=== PATIENT | male | born 1955 | race Caucasian/White ===

== ENCOUNTER 2020-06-27 17:08 | Inpatient (IN) ==
[2020-06-27] MEDS ORDERED: IOPAMIDOL 100 ML BOTTLE IV ONE (17:09)
[2020-06-27] MEDS ORDERED: ONDANSETRON 4 MG/2 ML VIAL IV ONE ×3 (17:33→20:56)
[2020-06-27] MEDS ORDERED: 0.9 % SODIUM CHLORIDE 2,000 ML IV ONE (17:33)
[2020-06-27] MEDS ORDERED: PANTOPRAZOLE 40 MG VIAL IV ONE (17:33)
--- NOTE | 2020-06-27 17:38 | Emergency Department Note ---
Abdominal Pain HPI General Chief Complaint: Abdominal Pain Stated Complaint: Generalized Abdominal Pain Time Seen by Provider: 06/27/20 17:33 Source: patient Mode of arrival: ambulatory Limitations: no limitations History of Present Illness HPI Narrative: Narrative: 65-year-old male comes in complaining of periumbilical belly pain rated 6-7 out of 10. He has not taken anything for it. He has some mild nausea no vomiting yet. He has some mild diarrhea earlier today. He was just sitting on the couch watching TV when the pain came on. Prior to that he had drank a beer and had some food though. He drinks about 1 beer every 2 or 3 days. No fever chills shortness of breath trouble urinating or any other recent illness. In further history he notes that he does have chronic back pain issues. Additionally he had a CT scan of the abdomen pelvis done last week for right lower quadrant pain that was negative for appendicitis-this was done over at [facility] for his PCP Related Data Home Medications Medication Instructions Recorded Confirmed amlodipine 5 mg PO 06/27/20 aspirin 81 mg PO QDAY 06/27/20 06/27/20 atorvastatin 10 mg PO 06/27/20 losartan 100 mg PO 06/27/20 omeprazole 20 mg PO 06/27/20 Allergies Allergy/AdvReac Type Severity Reaction Status Date / Time No Known Drug Allergies Allergy Verified 06/27/20 17:09 Review of Systems ROS ROS Narrative: Narrative: All systems ED: reviewed and negative except as stated. [facility] Narrative Patient History Narrative: Narrative: Medical/Surgical/Family History All Active Problems (Updated 06/27/20 @ 22:47 by Maurilio Diaz MD) Abdominal pain (Acute) Acute appendicitis (Acute) GERD (gastroesophageal reflux disease) (Acute) High cholesterol (Acute) Hypertension (Acute) Social History Smoking Status: Former smoker Alcohol Intake Frequency: 0-2 drinks per day Exam Narrative Narrative: Narrative: No acute distress resting. Normocephalic atraumatic. Conjunctive are clear sclerae white nonicteric. No nasal discharge or congestion. Oropharynx pink and moist. Neck is supple without lymphadenopathy thyromegaly. Heart is regular rate and rhythm no murmur appreciated. Lungs clear to auscultation bilaterally without wheezes rales rhonchi or respiratory distress. Abdomen is soft nontender nondistended except for the periumbilical area which is mildly tender. No peritoneal signs or guarding. No pedal edema. Alert oriented able answer questions appropriately. Face is symmetrical. No dysarthria ataxia or tremor General Limitations: no limitations Course Vital Signs Vital signs: Vital Signs Temperature 97.0 F 06/27/20 17:09 Pulse Rate 81 06/27/20 17:09 Respiratory Rate 26 H 06/27/20 17:09 Blood Pressure 232/75 06/27/20 17:09 Pulse Oximetry (%) 97 06/27/20 17:09 Temperature 97.0 F 06/27/20 17:09 Pulse Rate 60 06/27/20 22:31 Respiratory Rate 13 06/27/20 22:31 Blood Pressure 155/99 06/27/20 22:31 Pulse Oximetry (%) 96 06/27/20 22:31 MDM MDM Narrative Medical decision making narrative: Narrative: Concern for pancreatitis versus appendicitis versus other bowel issues of both infectious and noninfectious origin. Gastritis could also cause this picture. He denies any vomiting or abnormal stools. We will work-up with CT scan plus laboratory. Start IV fluids and pain medicines. Pantoprazole His blood pressure is markedly elevated as well so we will give him some labetalol-however after ordering this nursing staff informed me that that blood pressure was erroneous. Blood pressure was actually 110/68. So this order is retracted He developed some diaphoresis and bradycardia so EKG was ordered which showed sinus bradycardia with few PVCs. This was after getting some Dilaudid for pain. CT scan showed a left kidney stone which is unlikely because of the many issues. Also markedly dilated appendix at 1.3 cm. Some thickening of the hope also noted. Discussed the case with Dr. Bolton, general surgeon. He advised me that he would come evaluate the patient We had to give him his more pain medicine as his pain level started rising. Unfortunately he did not tolerate this well and his oxygen levels started to drop. So we had to place him on oxygen. Currently he is very sensitive to the respiratory effects of narcotics. Lab Data Lab results reviewed: Yes I reviewed the patient's lab results. Result diagrams: 06/27/20 17:50 06/27/20 17:50 Labs: Lab Results 06/27/20 06/27/20 06/27/20 Range/Units 17:50 17:50 17:50 WBC 11.8 H (4.5-11.0) K/mcL RBC 5.06 (4.50-5.90) M/mcL Hgb 15.0 (13.5-16.5) g/dL Hct 44.4 (41.0-55.0) % MCV 87.7 (80.0-100.0) fL MCH 29.6 (26.0-34.0) pg MCHC 33.8 (31.0-36.0) g/dL RDW 12.8 (11.5-14.5) % Plt Count 191 (140-440) K/mcL MPV 9.5 (7.4-10.4) fL Neut % (Auto) 80.0 H (38.0-78.0) % Lymph % (Auto) 11.7 L (15.0-49.0) % Kings % (Auto) 6.8 (1.0-12.0) % Eos % (Auto) 1.1 (0.0-7.0) % Baso % (Auto) 0.4 (0.0-2.0) % Lymph # (Auto) 1.38 L (1.50-4.80) K/mcL Kings # (Auto) 0.80 (0.10-0.90) K/mcL Eos # (Auto) 0.13 (0.00-0.70) K/mcL Baso # (Auto) 0.05 (0.00-0.20) K/mcL Absolute Neutrophils 9.45 H (1.80-8.00) K/mcL VBG Lactic Acid 1.3 (0.5-2.0) mmol/L Sodium 137 (133-145) mmol/L Potassium 3.5 (3.3-5.1) mmol/L Chloride 103 (96-108) mmol/L Carbon Dioxide 23 (22-30) mmol/L Anion Gap 11.0 (8.0-16.0) BUN 14 (8-23) mg/dL Creatinine 1.0 (0.7-1.2) mg/dL GFR Calculation 77 Glucose 115 H (70-105) mg/dL Calcium 9.4 (8.6-10.4) mg/dL Total Bilirubin 0.4 (0.1-1.0) mg/dL AST 19 (<40) U/L ALT 18 (<40) U/L Alkaline Phosphatase 98 (39-117) U/L C-Reactive Protein 0.20 (0.03-0.80) mg/dL Total Protein 6.5 (5.9-8.4) gm/dL Albumin 4.1 (3.2-5.2) gm/dL Globulin 2.4 (2.2-3.7) gm/dL Albumin/Globulin Ratio 1.7 (1.0-2.3) Lipase 26 (7-60) U/L Radiology Data Radiology results reviewed: Yes I reviewed the patient's radiology results. EKG Data EKG #1: EKG attestation: Yes I reviewed and interpreted this EKG. EKG results narrative: EKG showed sinus bradycardia with few PVCs Discharge Plan Patient/Caregiver Discharge Instructions Pt seen by FORK REPAIRER/PA only: No Clinical Impression: Acute appendicitis Qualifiers: Acute appendicitis type: with generalized peritonitis Appendicitis gangrene presence: unspecified whether gangrene present Appendicitis perforation presence: unspecified whether perforation present Appendicitis abscess presence: unspecified whether abscess present Qualified Code(s): K35.20 - Acute appendicitis with generalized peritonitis, without abscess Patient Disposition: Xfer As Inpt ([facility]) Condition: Serious Follow up with: Hellen Cardona MD [Primary Care Provider] - Prescriptions: No Action amlodipine 5 mg Tablet 5 mg PO DAILY RF: 0 omeprazole 20 mg Capsule,Delayed Release(Dr/Ec) 20 mg PO DAILY RF: 0 losartan 100 mg Tablet 100 mg PO DAILY RF: 0 atorvastatin 10 mg Tablet 10 mg PO DAILY RF: 0 aspirin 81 mg Tablet,Chewable 81 mg PO QDAY RF: 0
[2020-06-27] MEDS ORDERED: LABETALOL 5 MG/ML ML IV ONE (17:44)
[2020-06-27] MEDS: HYDROmorphone 0.5 MG/0.5 ML SYRINGE IV PRN ×4 (18:05→23:21)
[2020-06-27 18:24] LABS: Basophils # (Auto) 0.05 K/mcL (0.00-0.20); Basophils % (Auto) 0.4 % (0.0-2.0); Eosinophils # (Auto) 0.13 K/mcL (0.00-0.70); Eosinophils % (Auto) 1.1 % (0.0-7.0); Hematocrit 44.4 % (41.0-55.0); Lymphocytes # (Auto) 1.38 K/mcL (1.50-4.80); Lymphocytes % (Auto) 11.7 % (15.0-49.0); Mean Cell Volume 87.7 fL (80.0-100.0); Mean Corpuscular HGB Conc 33.8 g/dL (31.0-36.0); Mean Platelet Volume 9.5 fL (7.4-10.4); Monocytes % (Auto) 6.8 % (1.0-12.0); Platelet Count 191 K/mcL (140-440); RBC 5.06 M/mcL (4.50-5.90); Red Cell Distribution Width 12.8 % (11.5-14.5); WBC 11.8 K/mcL (4.5-11.0)
[2020-06-27 18:46] LABS: ALT/SGPT 18 U/L (<40); AST/SGOT 19 U/L (<40); Albumin 4.1 gm/dL (3.2-5.2); Albumin/Globulin Ratio 1.7 (1.0-2.3); Alkaline Phosphatase 98 U/L (39-117); Bilirubin,Total 0.4 mg/dL (0.1-1.0); Blood Urea Nitrogen 14 mg/dL (8-23); Calcium 9.4 mg/dL (8.6-10.4); Carbon Dioxide 23 mmol/L (22-30); Chloride 103 mmol/L (96-108); Globulin 2.4 gm/dL (2.2-3.7); Glomerular Filtration Rate 77; Glucose 115 mg/dL (70-105)
[2020-06-27] MEDS ORDERED: metroNIDAZOLE 500 MG/100 ML BAG IV ONE (19:52)
[2020-06-27] MEDS ORDERED: cefTRIAXone 2 GM VIAL IM SCH (20:00)
[2020-06-27] MEDS ORDERED: morphine 2 MG/ML VIAL IV PRN (20:56)
[2020-06-27] MEDS ORDERED: PROMETHAZINE 25 MG/ML VIAL IM PRN (20:56)
[2020-06-27] MEDS ORDERED: 0.9 % SODIUM CHLORIDE 1,000 ML IV SCH (21:00)
--- NOTE | 2020-06-27 22:47 | General Surg History&Physical ---
HPI History of Present Illness Patient information: Note initiated : 06/27/20 at 10:29 pm Service Date, if different from initiated Date: [] Patient: David Archer 65 y/o M admitted on for Generalized Abdominal Pain. Chief Complaint: [] History of present illness: Mr. Archer is a 65 year old M 65 yo man with normal colonoscopy 3 yrs ago presents to ed with several hrs of moderately severe crampy, twisting, stabbing periumbilical pain. Pain started some months ago with variable pain in RLQ that was a light ache to a sharp pain. This was intermittent but seemed to get worse 1 week ago. He underwent CT scan at OSH where was noted to have dilated appendix but without other features of appendicitis. He was sent home without further followup. This afternoon with periumbilical pain after being pain free in am. Pain is improved by pushing on abdomen anteriorly, worsened with side compression. Not exacerbated by movement, standing, or jostling. Associated diarrhea - non bloody. Generally feels well No family hx of Colorectal cancer PMH: HTN Hypercholest OA GERD PSH Tonsilectomy No abdominal surgery Constitutional Constitutional: Absent daytime sleepiness, excessive sweating and weakness EENT Eyes: Absent tunnel vision Breasts Breasts: Absent nipple discharge Cardiovascular Cardiovascular: Absent edema Respiratory Respiratory: Absent cough, dyspnea on exertion and stridor Gastrointestinal Gastrointestinal: Present abdominal pain; Absent melena Genitourinary Genitourinary: flank pain Musculoskeletal Musculoskeletal: Absent abnormal gait Integumentary Integumentary: Absent rash Neurological Neurological: Absent memory loss Psychiatric Psychiatric: Absent memory loss Endocrine Endocrine: Absent palpitations Hematologic/Lymphatic Hematologic/Lymphatic: Absent easy bleeding PFSH PFSH All Active Problems (Updated 06/27/20 @ 22:47 by Maurilio Diaz MD) Abdominal pain (Acute) Acute appendicitis (Acute) GERD (gastroesophageal reflux disease) (Acute) High cholesterol (Acute) Hypertension (Acute) Social History smoking status: Former smoker alcohol intake frequency: 0-2 drinks per day MEDS/ALLERGIES Home Medications and Allergies Home Medications Medication Instructions Recorded Confirmed Type amlodipine 5 mg PO DAILY 06/27/20 06/27/20 History aspirin 81 mg PO QDAY 06/27/20 06/27/20 History atorvastatin 10 mg PO DAILY 06/27/20 06/27/20 History losartan 100 mg PO DAILY 06/27/20 06/27/20 History omeprazole 20 mg PO DAILY 06/27/20 06/27/20 History Allergies Allergy/AdvReac Type Severity Reaction Status Date / Time No Known Drug Allergies Allergy Verified 06/27/20 17:09 Physical Examination Vital Signs Vital signs: Temp Pulse Resp BP Pulse Ox 36.1 C 78 13 133/75 98 06/27/20 17:09 06/27/20 22:02 06/27/20 22:02 06/27/20 22:02 06/27/20 22:02 General physical appearance General physical exam: well developed and well nourished Eyes Eye exam: PERRL and normal ocular movement ENT ENT exam: normal nares Head Head exam IM: Present atraumatic, normal inspection and normocephalic Neck Neck exam: no masses and trachea midline Cardiovascular Cardiovascular: RRR no MGR Respiratory Respiratory exam: normal respiratory effort and clear to auscultation Abdomen Abdomen: Present soft (No surgical incisions, BS hypoactive, Dull to percussion, nontender to percussion, nontender including in RLQ to deep palpation, tiney umbilical hernia nontender. no groing hernias. No HSM) Integumentary Integumentary: Present no rash Neurologic Neurologic: Present normal coordination and normal sensation Musculoskeletal Musculoskeletal: Present normal gait Psychiatric Psychiatric: Present oriented to time, oriented to person, oriented to place, speech is normal and memory intact Results Labs Result diagrams: 06/27/20 17:50 06/27/20 17:50 Labs: Abnormal lab results 06/27/20 06/27/20 Range/Units 17:50 17:50 WBC 11.8 H (4.5-11.0) K/mcL Neut % (Auto) 80.0 H (38.0-78.0) % Lymph % (Auto) 11.7 L (15.0-49.0) % Lymph # (Auto) 1.38 L (1.50-4.80) K/mcL Absolute Neutrophils 9.45 H (1.80-8.00) K/mcL Glucose 115 H (70-105) mg/dL Diabetes panel 06/27/20 Range/Units 17:50 Sodium 137 (133-145) mmol/L Potassium 3.5 (3.3-5.1) mmol/L Chloride 103 (96-108) mmol/L Carbon Dioxide 23 (22-30) mmol/L BUN 14 (8-23) mg/dL Creatinine 1.0 (0.7-1.2) mg/dL Glucose 115 H (70-105) mg/dL Calcium 9.4 (8.6-10.4) mg/dL AST 19 (<40) U/L ALT 18 (<40) U/L Alkaline Phosphatase 98 (39-117) U/L Total Protein 6.5 (5.9-8.4) gm/dL Albumin 4.1 (3.2-5.2) gm/dL Calcium panel 06/27/20 Range/Units 17:50 Calcium 9.4 (8.6-10.4) mg/dL Albumin 4.1 (3.2-5.2) gm/dL Pituitary panel 06/27/20 Range/Units 17:50 Sodium 137 (133-145) mmol/L Potassium 3.5 (3.3-5.1) mmol/L Chloride 103 (96-108) mmol/L Carbon Dioxide 23 (22-30) mmol/L BUN 14 (8-23) mg/dL Creatinine 1.0 (0.7-1.2) mg/dL Glucose 115 H (70-105) mg/dL Calcium 9.4 (8.6-10.4) mg/dL Adrenal panel 06/27/20 Range/Units 17:50 Sodium 137 (133-145) mmol/L Potassium 3.5 (3.3-5.1) mmol/L Chloride 103 (96-108) mmol/L Carbon Dioxide 23 (22-30) mmol/L BUN 14 (8-23) mg/dL Creatinine 1.0 (0.7-1.2) mg/dL Glucose 115 H (70-105) mg/dL Calcium 9.4 (8.6-10.4) mg/dL Total Bilirubin 0.4 (0.1-1.0) mg/dL AST 19 (<40) U/L ALT 18 (<40) U/L Alkaline Phosphatase 98 (39-117) U/L Total Protein 6.5 (5.9-8.4) gm/dL Albumin 4.1 (3.2-5.2) gm/dL All other labs normal. A/P Assessment and plan (1) Abdominal pain: Status: Acute Comment: 65 yo man with an oddly prolonged months long history of abdominal pain mostly in RLQ with a slowly progressive course. Today more moderately severe than normal but also periumbilical. With only a very minimally elevated WBC and a normal CRP and long course he does not fit the paturn of acute appendicitis. Never the less his appendix is quite dilated to 13mm - no adjacent fat stranding. 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 The dilation of the appendix is in the mid portion - somewhat suggestive of a mucaceal. Periumbilical pain may be referred from the appendix or manifestation of early abdominal process Plan: NO ANTIBIOTICS - will follow exam clinically to see if declares Am CBC, CRP As to MAN - Sending tumor markers CEA, CA 19-9, CA 125 - will eventually need appendectomy vs R hemicolectomy depending on features - plan for full diagnostic laparoscopy to eval for related MAN for carcinomatosis Maurilio Diaz MD Surgery Time Spent With Patient Time: Total time spent is greater than 50% in coordination of care (as documented) at patient's floor/unit and/or counseling patient:
[2020-06-28] MEDS ORDERED: ONDANSETRON 4 MG/2 ML VIAL IV PRN (00:16)
[2020-06-28] MEDS ORDERED: ACETAMINOPHEN 160 MG/5 ML ORAL.SOL PO SCH (00:16)
[2020-06-28] MEDS ORDERED: METHOCARBAMOL 750 MG TABLET PO SCH (00:16)
[2020-06-28] MEDS ORDERED: PROMETHAZINE 50 MG/ML AMPUL IM PRN (00:16)
[2020-06-28] MEDS: LACTATED RINGERS 1,000 ML IV SCH ×2 (00:29→18:19)
[2020-06-28] MEDS ORDERED: ACETAMINOPHEN 325 MG TABLET PO ONE ×2 (00:47→05:22)
[2020-06-28] MEDS ORDERED: GABAPENTIN 300 MG CAPSULE ONE (00:48)
[2020-06-28] MEDS: ACETAMINOPHEN 325 MG TABLET PO SCH ×4 (00:52→23:14)
[2020-06-28] MEDS: GABAPENTIN 300 MG CAPSULE PO SCH ×2 (00:52→23:15)
[2020-06-28] MEDS ORDERED: morphine 4 MG/ML VIAL ONE ×2 (01:32→05:25)
--- NOTE | 2020-06-28 04:19 | Cat Scan Report ---
CLINICAL INFORMATION: Abdominal pain COMPARISON: None. TECHNIQUE: Following enteric contrast, 80 cc of Isovue-370 were injected intravenously, and 60 seconds later, 0.625 mm helical slices were obtained from the mid heart through the subtrochanteric regions. Following reconstruction, 2.5 mm sagittal, coronal and axial reformatted images were processed and reviewed at bone, lung and soft tissue windows. Five minutes later, 0.625 mm helical slices were obtained from the mid heart through the kidneys and viewed at soft tissue windows.The exam was performed using radiation dose optimization techniques including, but not limited to, automated exposure control, adjustment of the mA and/or kV according to patient size and use of iterative reconstruction technique. FINDINGS: Lung bases show minimal minimal patchy groundglass airspace in the posterior lower lobes - likely a combination of scarring and atelectasis. No definite infiltrates or effusions. The heart is mildly enlarged. There is moderate calcific plaque in the visualized coronary arteries Abdominal images show a phrygian cap in the gallbladder - the gallbladder is otherwise normal. The liver, both adrenal glands, spleen, pancreas and aorta including aortic branches are normal in size, configuration and attenuation without focal lesion. A 2 mm nonobstructing stone is seen within a mid calyx of the left kidney 11 mm simple cyst seen in the superior pole the left kidney. No other renal abnormalities. There is no free air, free fluid or adenopathy Pelvic images show prostate, seminal vesicles and urinary bladder are normal. Scattered sigmoid diverticuli appreciated: the remaining colon is normal. The appendix is moderately dilated, 14 mm, and there is mild wall thickening of the proximal appendix near the cecal junction. No inflammation of the periappendiceal fat. A small amount of contrast seen in the appendiceal lumen, but no definite appendicolith. The small bowel and stomach are grossly normal. Bone windows show severe degeneration in the right and moderate degeneration of the left hip. There is moderate degenerative change throughout the lower lumbar spine. IMPRESSION: 1. Probable early appendicitis. Appendix is dilated with mild wall thickening proximally. No inflammation in the periappendiceal fat, however. Please correlate with other clinical symptoms for appendicitis. The appendix is located in the inferior pericecal region 2. Pancreas is unremarkable. 3. 2 mm nonobstructing stone mid calyx left kidney. 11 mm simple cyst superior pole left kidney 4. Severe right and moderate left hip degeneration. Moderate lumbar degeneration. 5. Moderately heavy calcific plaque in the visualized coronary arteries including the left main LAD proximal circumflex. Interpreted and Authenticated by: Kg Marie 06/28/20
[2020-06-28] MEDS ORDERED: METHOCARBAMOL 750 MG TABLET PO ONE (04:38)
[2020-06-28] MEDS: HEPARIN 5,000 UNIT/ML VIAL SQ SCH ×3 (05:25→23:18)
[2020-06-28] MEDS ORDERED: HEPARIN 5,000 UNIT/ML VIAL ONE (05:26)
[2020-06-28 07:21] LABS: Hemoglobin 14.1 g/dL (13.5-16.5); Mean Cell Volume 90.1 fL (80.0-100.0); Mean Corpuscular HGB Conc 32.8 g/dL (31.0-36.0); Mean Platelet Volume 9.8 fL (7.4-10.4); Platelet Count 192 K/mcL (140-440); RBC 4.77 M/mcL (4.50-5.90); Red Cell Distribution Width 12.8 % (11.5-14.5); WBC 16.3 K/mcL (4.5-11.0)
[2020-06-28 07:33] LABS: Blood Urea Nitrogen 13 mg/dL (8-23); Carbon Dioxide 25 mmol/L (22-30); Chloride 101 mmol/L (96-108); Glomerular Filtration Rate 88; Glucose 145 mg/dL (70-105)
[2020-06-28 08:19] LABS: CRP,High Sensitivity 8.2 mg/L (1.0-3.0)
[2020-06-28 08:50] LABS: Band Neutrophils % 3 % (0-10); Lymphocytes % 4 % (15-49); Monocytes % (Manual) 7 % (1-12); Platelet Estimate NORMAL (Normal); RBC Morphology NORMAL (Normal); Reactive Lymphocytes 2 % (0-2); Segmented Neutrophils % 84 % (38-78)
[2020-06-28] MEDS: amLODIPine 5 MG TABLET PO SCH (10:31)
[2020-06-28] MEDS: ASPIRIN 81 MG TAB.CHEW PO SCH (10:31)
[2020-06-28] MEDS: OMEPRAZOLE 20 MG CAPSULE PO SCH (10:31)
[2020-06-28] MEDS: ATORVASTATIN 10 MG TABLET PO SCH (10:31)
[2020-06-28] MEDS: LOSARTAN 50 MG TABLET PO SCH (10:31)
[2020-06-28] MEDS: POLYETHYLENE GLYCOL 3350 17 GM PACKET PO SCH (10:33)
[2020-06-28] MEDS: morphine 4 MG/ML VIAL IV PRN (10:40)
[2020-06-28] MEDS: cefTRIAXone 2 GM in DEXTROSE 5% IN WATER 50 ML IV SCH (12:33)
--- NOTE | 2020-06-28 12:48 | General Surgery Progress Note ---
SUBJECTIVE Subjective Patient information: Note initiated : 06/28/20 at 12:42 pm Service Date, if different from initiated Date: [] Patient: David Archer 65 y/o M admitted on 06/28/20 for Generalized Abdominal Pain. Chief Complaint: abdominal pain S: feeling worse today overnight off antibiotics pain localized to RLQ. Ready for surgery. O: vss NAD, some new diaphoresis LCTAB RRR no mgr Abd now tender in RLQ, no rebound, reflexive guarding. 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 Plan: Ceftriaxone/Metronidazole OR today for Lap appy with partial cecectomy to remove appendiceal orifice Will explore abdomen for any peritoneal implants If obvious mucinous disease of cecum will need R hemicolectomy Risks including bleeding infeciton injury to structions leakage of mucinin products with creation of periteneal diease all discussed All questions answered Pt ready to proceed Maurilio Diaz MD Surgery Constitutional Vitals: Vital Signs Temp Pulse Resp BP Pulse Ox 37.7 C H 78 18 134/83 93 06/28/20 07:56 06/28/20 07:56 06/28/20 07:56 06/28/20 07:56 06/28/20 07:56 Period Temp Pulse Resp BP Sys/Cohen Pulse Ox Last 24 Hr 36.1 C-37.7 C 44-92 12- 110-232/68-104 93-99 Intake and Output 06/27/20 06/28/20 06/28/20 21:59 05:59 13:59 Intake Total 100 15 Output Total 450 325 Balance -350 -310 Weight 117.027 kg 116.261 kg Intake & Output: Intake & Output 06/27/20 06/28/20 06/28/20 21:59 05:59 13:59 Intake Total 100 15 Output Total 450 325 Balance -350 -310 Weight 117.027 kg 116.261 kg Intake: IV 100 Sodium Chloride 0.9% 1,000 ml @ 100 100 mls/hr IV .Q10H [facility] Rx#: [id number] Oral 15 Output: Void Amount 450 325 Other: Urine Appearance Clear Clear Urine Color Straw Bright Yellow Urine Odor Normal A/P Time Spent With Patient Time: Total time spent is greater than 50% in coordination of care (as documented) at patient's floor/unit and/or counseling patient:
[2020-06-28] MEDS: metroNIDAZOLE 500 MG/100 ML BAG IV SCH ×2 (13:00→23:16)
[2020-06-28] MEDS ORDERED: ONDANSETRON 4 MG/2 ML VIAL ONE (13:20)
[2020-06-28] MEDS ORDERED: SUGAMMADEX SODIUM 200 MG/2 ML VIAL IV ONE (13:20)
[2020-06-28] MEDS ORDERED: ROCURONIUM 10 MG/ML ML IV ONE (13:20)
[2020-06-28] MEDS ORDERED: fentaNYL 250 MCG/5 ML VIAL IV ONE (13:20)
[2020-06-28] MEDS ORDERED: SUCCINYLCHOLINE 20 MG/ML ML IV ONE (13:20)
[2020-06-28] MEDS ORDERED: DEXAMETHASONE 10 MG/ML VIAL ONE (13:20)
[2020-06-28] MEDS ORDERED: MIDAZOLAM 5 MG/5 ML VIAL ONE (13:20)
[2020-06-28] MEDS ORDERED: GLYCOPYRROLATE 0.2 MG/ML VIAL IV ONE (13:20)
[2020-06-28] MEDS ORDERED: PHENYLEPHRINE 10 MG/ML VIAL ONE (13:20)
[2020-06-28] MEDS ORDERED: LIDOCAINE HCL/PF 100 MG/5 ML SYRINGE IV ONE (13:20)
[2020-06-28] MEDS ORDERED: KETAMINE 100 MG/ML ML ONE (13:20)
[2020-06-28] MEDS ORDERED: HYDROmorphone* 2 MG/ML VIAL ONE (13:20)
[2020-06-28] MEDS ORDERED: PROPOFOL 200 MG/20 ML VIAL IV ONE (13:20)
[2020-06-28] MEDS ORDERED: METOPROLOL TARTRATE 5 MG/5 ML VIAL IV ONE (13:20)
[2020-06-28] MEDS ORDERED: BUPIVACAINE W/EPI 0.25% 50 ML VIAL IJ ONE (13:46)
[2020-06-28] MEDS ORDERED: ACETAMINOPHEN 1,000 MG/100 ML BAG IV ONE (16:11)
[2020-06-28] MEDS ORDERED: METOPROLOL TARTRATE 5 MG/5 ML VIAL IV PRN (16:11)
[2020-06-28] MEDS ORDERED: fentaNYL 100 MCG/2 ML VIAL IV PRN (16:11)
[2020-06-28] MEDS ORDERED: LACTATED RINGERS 250 ML IV PRN (16:11)
[2020-06-28] MEDS ORDERED: FLUMAZENIL 0.1 MG/ML ML IV PRN (16:11)
[2020-06-28] MEDS ORDERED: NALOXONE HCL 0.4 MG/ML VIAL IV PRN (16:11)
[2020-06-28] MEDS ORDERED: HYDROmorphone 0.5 MG/0.5 ML SYRINGE IV PRN (16:11)
[2020-06-28] MEDS ORDERED: IPRATROPIUM/ALBUTEROL 3 ML AMPUL.NEB NEB PRN (16:11)
[2020-06-28] MEDS ORDERED: BENZOCAINE/MENTHOL 1 LOZENGE PO PRN (16:11)
[2020-06-28] MEDS ORDERED: LABETALOL 5 MG/ML ML IV PRN (16:11)
[2020-06-28] MEDS ORDERED: METHOCARBAMOL 1,000 MG/10 ML VIAL IV PRN (16:11)
[2020-06-28] MEDS ORDERED: LACTATED RINGERS 1,000 ML IV SCH (16:15)
--- NOTE | 2020-06-28 17:00 | Brief Operative Note ---
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 ) Procedure: 1) Diagnostic laparoscopy 2) Biopsy of jejunal mesentery peritoneal implant 3) Laparoscopic appendectomy with partial cecectomy of 2cm of cecum adjacent to appendiceal orifice 4) Biopsy of periappendiceal fat in iliac fossa Grafts/Implants: No Anesthesia: GETA Findings: 1) Markedly enlarged appendix with what some degree of acute inflammation 2) Base questionably involved 3) large size with months of symptoms concerning for possible MAN - consequently cecum mobilized and partial cecectomy performed 4) large portion of peritoneal surfaces inspected - small questionable implant on mesentery biopsied. Considerable time spent inspecting Sommers pouch, pelvis, splenic recess for implants none found. Complications: none Surgeon: Maurilio Diaz Estimated blood loss (cc): 30 Specimens Removed/Pathology: other (1) appendix with cecum, 2) periappendiceal fat, 3) jejunal mesentary implant ) Condition: stable Disposition: PACU
[2020-06-28] MEDS ORDERED: fentaNYL 100 MCG/2 ML VIAL IV ONE (17:16)
[2020-06-28] MEDS: LACTOBACILLUS 1 CAPSULE PO SCH (23:16)
[2020-06-29] MEDS: ACETAMINOPHEN 325 MG TABLET PO SCH ×5 (00:29→23:48)
[2020-06-29] MEDS: morphine 4 MG/ML VIAL IV PRN ×3 (00:43→20:29)
[2020-06-29] MEDS: LACTATED RINGERS 1,000 ML IV SCH ×3 (00:44→10:21)
[2020-06-29 06:01] LABS: Basophils # (Auto) 0.02 K/mcL (0.00-0.20); Basophils % (Auto) 0.1 % (0.0-2.0); Eosinophils # (Auto) 0 K/mcL (0.00-0.70); Eosinophils % (Auto) 0 % (0.0-7.0); Hematocrit 38.5 % (41.0-55.0); Hemoglobin 12.5 g/dL (13.5-16.5); Lymphocytes # (Auto) 0.71 K/mcL (1.50-4.80); Lymphocytes % (Auto) 4.4 % (15.0-49.0); Mean Cell Volume 91.2 fL (80.0-100.0); Mean Corpuscular HGB Conc 32.5 g/dL (31.0-36.0); Mean Platelet Volume 9.8 fL (7.4-10.4); Monocytes # (Auto) 1.33 K/mcL (0.10-0.90); Monocytes % (Auto) 8.2 % (1.0-12.0); Neutrophils % (Auto) 87.3 % (38.0-78.0); Platelet Count 176 K/mcL (140-440); RBC 4.22 M/mcL (4.50-5.90); WBC 16.2 K/mcL (4.5-11.0)
[2020-06-29] MEDS: HEPARIN 5,000 UNIT/ML VIAL SQ SCH ×3 (06:16→22:17)
[2020-06-29] MEDS: metroNIDAZOLE 500 MG/100 ML BAG IV SCH ×3 (06:17→22:17)
[2020-06-29 06:34] LABS: Blood Urea Nitrogen 13 mg/dL (8-23); Calcium 8.8 mg/dL (8.6-10.4); Carbon Dioxide 29 mmol/L (22-30); Chloride 104 mmol/L (96-108); Glomerular Filtration Rate 77; Glucose 125 mg/dL (70-105)
[2020-06-29] MEDS: OMEPRAZOLE 20 MG CAPSULE PO SCH (08:12)
[2020-06-29] MEDS: ASPIRIN 81 MG TAB.CHEW PO SCH (08:13)
[2020-06-29] MEDS: ATORVASTATIN 10 MG TABLET PO SCH (08:13)
[2020-06-29] MEDS: LOSARTAN 50 MG TABLET PO SCH (08:13)
[2020-06-29] MEDS: LACTOBACILLUS 1 CAPSULE PO SCH ×2 (08:13→20:17)
[2020-06-29] MEDS: POLYETHYLENE GLYCOL 3350 17 GM PACKET PO SCH (08:14)
[2020-06-29] MEDS: amLODIPine 5 MG TABLET PO SCH (08:14)
[2020-06-29] MEDS: cefTRIAXone 2 GM in DEXTROSE 5% IN WATER 50 ML IV SCH (09:03)
[2020-06-29] MEDS ORDERED: POTASSIUM CHLORIDE 20 MEQ TABLET PO ONE (09:26)
--- NOTE | 2020-06-29 09:37 | General Surgery Progress Note ---
SUBJECTIVE Subjective Patient information: Note initiated : 06/29/20 at 9:34 am Service Date, if different from initiated Date: [] Patient: David Archer 65 y/o M admitted on 06/28/20 for Generalized Abdominal Pain. Chief Complaint: appendicial infection S: feeling much improved this morning, essentially no pain, + flatus o: VSS 4L uop Looks well, strong voice LcTAB RRR Abd soft minimaly tender non distended, soft, wounds CDI Calderon in place with dilute yellow urine WBC 16 A/P 65 yo man POD1 after Lap exploration and appendectomy with partial cecectomy for possible MAN/appendicitis Now well IV abx with possibility of gangrenous appendicitis OK for general diet Calderon out tomorrow AM - hx of urinary stream obstruciton Heparin Sub Q [facility] Surgery Constitutional Vitals: Vital Signs Temp Pulse Resp BP Pulse Ox 36.9 C 60 18 118/72 93 06/29/20 06:56 06/29/20 06:56 06/29/20 06:56 06/29/20 06:56 06/29/20 06:56 Period Temp Pulse Resp BP Sys/Cohen Pulse Ox Last 24 Hr 36.6 C-37.3 C 58-77 10-95 103-154/56-88 2-95 Intake and Output 06/28/20 06/29/20 06/29/20 21:59 05:59 13:59 Intake Total 3600 781 Output Total 455 2900 Balance 3145 -2119 Weight 117.991 kg Intake & Output: Intake & Output 06/28/20 06/29/20 06/29/20 21:59 05:59 13:59 Intake Total 3600 781 Output Total 455 2900 Balance 3145 -2119 Weight 117.991 kg Intake: IV 200 581 Lactated Ringers 1,000 ml @ 75 481 mls/hr IV .[id number] [facility] Rx#: [id number] Oral 200 IV - Manual Only 3400 Output: Urine Catheter Amount 425 2900 Estimated Blood Loss 30 Other: Urine Appearance Clear Clear Clear Uretheral (Calderon) Clear Clear Urine Color Dark Yellow Pale Dark Yellow Uretheral (Calderon) Bright Yellow Dark Yellow Urine Odor Normal Uretheral (Calderon) Normal A/P Time Spent With Patient Time: Total time spent is greater than 50% in coordination of care (as documented) at patient's floor/unit and/or counseling patient:
[2020-06-29] MEDS ORDERED: BENZOCAINE/MENTHOL 1 LOZENGE PO PRN (19:58)
[2020-06-29] MEDS ORDERED: BENZOCAINE/MENTHOL 1 LOZENGE PO ONE (20:09)
[2020-06-29] MEDS: GABAPENTIN 300 MG CAPSULE PO SCH (20:17)
[2020-06-30] MEDS: metroNIDAZOLE 500 MG/100 ML BAG IV SCH (06:11)
[2020-06-30] MEDS: HEPARIN 5,000 UNIT/ML VIAL SQ SCH (06:11)
[2020-06-30] MEDS: ACETAMINOPHEN 325 MG TABLET PO SCH (06:12)
[2020-06-30] MEDS: OMEPRAZOLE 20 MG CAPSULE PO SCH (07:00)
[2020-06-30 07:03] LABS: Basophils # (Auto) 0.02 K/mcL (0.00-0.20); Basophils % (Auto) 0.2 % (0.0-2.0); Eosinophils # (Auto) 0.05 K/mcL (0.00-0.70); Eosinophils % (Auto) 0.5 % (0.0-7.0); Hemoglobin 12.7 g/dL (13.5-16.5); Lymphocytes # (Auto) 2.16 K/mcL (1.50-4.80); Lymphocytes % (Auto) 21.8 % (15.0-49.0); Mean Cell Volume 90.9 fL (80.0-100.0); Mean Corpuscular HGB Conc 32.6 g/dL (31.0-36.0); Monocytes # (Auto) 1.02 K/mcL (0.10-0.90); Monocytes % (Auto) 10.3 % (1.0-12.0); Neutrophils % (Auto) 67.2 % (38.0-78.0); Platelet Count 178 K/mcL (140-440); RBC 4.29 M/mcL (4.50-5.90); Red Cell Distribution Width 13.1 % (11.5-14.5); WBC 9.9 K/mcL (4.5-11.0)
[2020-06-30 07:44] LABS: Blood Urea Nitrogen 16 mg/dL (8-23); Calcium 8.8 mg/dL (8.6-10.4); Carbon Dioxide 27 mmol/L (22-30); Chloride 103 mmol/L (96-108); Glomerular Filtration Rate 88; Glucose 90 mg/dL (70-105)
[2020-06-30] MEDS: ASPIRIN 81 MG TAB.CHEW PO SCH (09:06)
[2020-06-30] MEDS: LACTOBACILLUS 1 CAPSULE PO SCH (09:06)
[2020-06-30] MEDS: amLODIPine 5 MG TABLET PO SCH (09:06)
[2020-06-30] MEDS: LOSARTAN 50 MG TABLET PO SCH (09:06)
[2020-06-30] MEDS: ATORVASTATIN 10 MG TABLET PO SCH (09:06)
[2020-06-30] MEDS: LACTATED RINGERS 1,000 ML IV SCH (09:07)
[2020-06-30] MEDS: cefTRIAXone 2 GM in DEXTROSE 5% IN WATER 50 ML IV SCH (09:19)
[2020-06-30] MEDS: POLYETHYLENE GLYCOL 3350 17 GM PACKET PO SCH (09:20)
[2020-06-30] MEDS ORDERED: POTASSIUM CHLORIDE 20 MEQ TABLET PO ONE (09:27)
--- NOTE | 2020-06-30 10:06 | Discharge Summary ---
Discharge Provider Provider Patient information: Note initiated : 06/30/20 at 9:54 am Service Date, if different from initiated Date: [] Patient: David Archer 65 y/o M admitted on 06/28/20 for Generalized Abdominal Pain. Chief Complaint: Appendiceal enlargement Date of admission: 06/28/20 00:12 Discharge date: 06/30/20 Primary care physician: Hellen Cardona Consults: 06/28/20 07:35 Consult to Physician [CONS] Routine Comment: Consulting Provider: Maurilio Diaz Reason For Exam: Physician to Consult COURSE Hospital Course Hospital course: 65 yo man with a several month history of RLQ intermitent pain. Was seen at OSH 1 week prior to presentation where noted to have a markedly enlarged appendix but no other evidence of acute appendicits. Present to [place] ER with vague abdominal pain and WBC of 11, CRP not elevated. Inital concern for possible mucinous appendiceal neoplasm or other malignancy. Overnight however WBC climbed to 16 and CRP to 8. Taken to OR following morning - intraop clinical impression was one of typical gangrenous appendicitis. However given odd history - full laproscopic exploration of abdomen performed. No mucinin deposits seen - several questionable areas biopsied. Cecum was well mobilized laproscopically and a 2+ cm cuff of cecum was removed enbloc to ensure the full appendicieal orifice was was removed with a significant margin. Post op Pt did well. Able to discharge home POD2. Given 7 day total course of abx with transition to amp/sub upon discharge. Discussed with Pt critical importance of follow up in clinic once pathology available. 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 Possible gangrenous appendicitis HTN Urinary retention Reason for admission: Abdominal pain Procedures: 06/28/20 - diagnostic laparoscopy, appendectomy with partial cecectomy, biopsy of peritoneal implants Complications: none Time Spent with Patient Time attestation: Total time spent providing and/or coordinating discharge services: Time spent: Less than 30 minutes Physical Examination Vital Signs Vital signs: Temp Pulse Resp BP Pulse Ox 36.9 C 70 18 149/84 94 06/30/20 07:20 06/30/20 07:20 06/30/20 07:20 06/30/20 07:20 06/30/20 07:20 General physical appearance General physical exam: other (Well appering, boisterous, breathing easily on RA, RRR, abd soft, essentially nontender, wounds CDI. minimal erythema at umbilical port site - suspect brusing. ) Discharge Plan Patient/Caregiver Discharge Instructions Activity: increase activity as tolerated Diet: Regular Diet Activity Restrictions/Additional Instructions: 1) OK to shower today, pat wounds dry. Wait 2 weeks to soak wounds in water - ie bath/hot tub 2) Ok for usual activities however no lifting over 15lbs for 6 weeks. - this is to prevent hernia formation 3) Ok to eat a regular diet however eat small amounts and easy to digest foods to start with. 4) Watch your umbilical wound carefully. If the redness continue to spread or worsen call the surgery office Prescriptions: New amoxicillin-pot clavulanate 875-125 mg tablet 1 tab PO Q12H Qty: 10 RF: 0 acetaminophen 500 mg tablet 1,000 mg PO Q6H Qty: 30 RF: 0 polyethylene glycol 3350 17 gram powder in packet 17 g PO QDAY Qty: 7 RF: 0 Continued amlodipine 5 mg Tablet 5 mg PO DAILY RF: 0 omeprazole 20 mg Capsule,Delayed Release(Dr/Ec) 20 mg PO DAILY RF: 0 losartan 100 mg Tablet 100 mg PO DAILY RF: 0 atorvastatin 10 mg Tablet 10 mg PO DAILY RF: 0 aspirin 81 mg Tablet,Chewable 81 mg PO QDAY RF: 0 Follow Up Plan Follow up with: Maurilio Diaz MD [Physician] - Hellen Cardona MD [Primary Care Provider] - Patient Disposition: Home, Self-Care Prognosis: Serious I certify that the patient requires SNF services: No Overall status at discharge: patient is progressing back to baseline Discharge Orders: Discharge Order (Routine); Ordered 06/30/20 Ordered By: Maurilio Diaz Pending Pending Pending: Resuscitation Status Full Code Diet Regular Diet Start Sat Jun 29 933 Acetaminophen (Tylenol) 650 mg PO Q6H COMFORT; Protocol Last Admin: 06/30/20 06:12 Dose: 650 mg Documented by: Admin: 06/29/20 23:48 Dose: 650 mg Documented by: Admin: 06/29/20 17:45 Dose: 650 mg Documented by: Admin: 06/29/20 11:02 Dose: 650 mg Documented by: Admin: 06/29/20 06:17 Dose: 650 mg Documented by: Admin: 06/29/20 00:29 Dose: Not Given Documented by: Admin: 06/28/20 23:14 Dose: 650 mg Documented by: Admin: 06/28/20 12:41 Dose: Not Given Documented by: Admin: 06/28/20 05:26 Dose: Not Given Documented by: Admin: 06/28/20 00:52 Dose: Not Given Documented by: SEGUN Amlodipine Besylate (Norvasc) 5 mg PO DAILY [facility] Admin: 06/30/20 09:06 Dose: 5 mg Documented by: Admin: 06/29/20 08:14 Dose: 5 mg Documented by: Admin: 06/28/20 10:31 Dose: 5 mg Documented by: URIEL Aspirin (Aspirin) 81 mg PO QDAY [facility] Admin: 06/30/20 09:06 Dose: 81 mg Documented by: Admin: 06/29/20 08:13 Dose: 81 mg Documented by: Admin: 06/28/20 10:31 Dose: 81 mg Documented by: URIEL Atorvastatin Calcium (Lipitor) 10 mg PO DAILY [facility] Admin: 06/30/20 09:06 Dose: 10 mg Documented by: Admin: 06/29/20 08:13 Dose: 10 mg Documented by: Admin: 06/28/20 10:31 Dose: 10 mg Documented by: URIEL Gabapentin (Neurontin) 600 mg PO HS [facility] Last Admin: 06/29/20 20:17 Dose: 600 mg Documented by: Admin: 06/28/20 23:15 Dose: 600 mg Documented by: Admin: 06/28/20 00:52 Dose: Not Given Documented by: SEGUN Heparin Sodium (Porcine) (Heparin) 5,000 unit SQ Q8 [facility] Last Admin: 06/30/20 06:11 Dose: 5,000 unit Documented by: Admin: 06/29/20 22:17 Dose: 5,000 unit Documented by: Admin: 06/29/20 14:01 Dose: 5,000 unit Documented by: Admin: 06/29/20 06:16 Dose: 5,000 unit Documented by: Admin: 06/28/20 23:18 Dose: 5,000 unit Documented by: Admin: 06/28/20 18:22 Dose: Not Given Documented by: Admin: 06/28/20 05:25 Dose: Not Given Documented by: SEGUN Ceftriaxone Sodium 2 gm/ (Dextrose) 50 mls @ 100 mls/hr IV Q24H COMFORT; Protocol Last Infusion: 06/30/20 09:53 Dose: 0 mls/hr Documented by: Admin: 06/30/20 09:19 Dose: 100 mls/hr Documented by: Infusion: 06/29/20 09:33 Dose: 100 mls/hr Documented by: Admin: 06/29/20 09:03 Dose: 100 mls/hr Documented by: Infusion: 06/28/20 12:56 Dose: 0 mls/hr Documented by: Admin: 06/28/20 12:33 Dose: 100 mls/hr Documented by: URIEL Metronidazole (Flagyl) 500 mg in 100 mls @ 100 mls/hr IV Q8H COMFORT; Protocol Last Infusion: 06/30/20 07:15 Dose: 0 mls/hr Documented by: Admin: 06/30/20 06:11 Dose: 100 mls/hr Documented by: Infusion: 06/29/20 23:17 Dose: 100 mls/hr Documented by: Admin: 06/29/20 22:17 Dose: 100 mls/hr Documented by: Infusion: 06/29/20 15:00 Dose: 100 mls/hr Documented by: Admin: 06/29/20 14:00 Dose: 100 mls/hr Documented by: Infusion: 06/29/20 07:17 Dose: 100 mls/hr Documented by: Admin: 06/29/20 06:17 Dose: 100 mls/hr Documented by: Infusion: 06/29/20 00:16 Dose: 100 mls/hr Documented by: Admin: 06/28/20 23:16 Dose: 100 mls/hr Documented by: Infusion: 06/28/20 14:00 Dose: 100 mls/hr Documented by: Admin: 06/28/20 13:00 Dose: 100 mls/hr Documented by: [email or web address] Lactobacillus Rhamnosus (Culturelle) 1 cap PO BID [facility] Last Admin: 06/30/20 09:06 Dose: 1 cap Documented by: Admin: 06/29/20 20:17 Dose: 1 cap Documented by: Admin: 06/29/20 08:13 Dose: 1 cap Documented by: Admin: 06/28/20 23:16 Dose: 1 cap Documented by: CRISPIN Losartan Potassium (Cozaar) 50 mg PO DAILY [facility] Last Admin: 06/30/20 09:06 Dose: 50 mg Documented by: Admin: 06/29/20 08:13 Dose: 50 mg Documented by: Admin: 06/28/20 10:31 Dose: 50 mg Documented by: URIEL Morphine Sulfate (Morphine) 4 mg IV Q4HP PRN; Protocol PRN Reason: Per Pain Protocol Last Admin: 06/29/20 20:29 Dose: 4 mg Documented by: Admin: 06/29/20 06:18 Dose: 4 mg Documented by: Admin: 06/29/20 00:43 Dose: 4 mg Documented by: Admin: 06/28/20 10:40 Dose: 4 mg Documented by: URIEL Omeprazole (Prilosec) 20 mg PO QAMAC [facility] Last Admin: 06/30/20 07:00 Dose: 20 mg Documented by: Admin: 06/29/20 08:12 Dose: 20 mg Documented by: Admin: 06/28/20 10:31 Dose: 20 mg Documented by: URIEL Polyethylene Glycol (Miralax) 17 gm PO DAILY [facility] Last Admin: 06/30/20 09:20 Dose: Not Given Documented by: Admin: 06/29/20 08:14 Dose: 17 gm Documented by: Admin: 06/28/20 10:33 Dose: 17 gm Documented by: URIEL Throat Lozenges (Cepacol) 1 lozenge PO PRN PRN PRN Reason: Sore Throat Last Admin: 06/29/20 23:48 Dose: 1 lozenge Documented by: SEGUN Shift Summary 06/29/20 16:30 Shift Summary by Murray Lundy Pt is pleasant, A/O x4. VSS on RA. Has 4 Lap sites in abdomen covered in film dressing. Colón catheter in place draining well, colón expected to be d/c'd tomorrow. IV in LFA running LR @20ml/hr. Up with SBA d/t lines. Should D/C tomorrow. Will update at bedside. Initialized on 06/29/20 16:30 - END OF NOTE
--- NOTE | 2020-07-01 10:19 | Operative Note ---
DATE OF OPERATION: 06/28/2020 PREOPERATIVE DIAGNOSIS: An enlarged appendix. 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 PROCEDURE: 1. Diagnostic laparoscopy. 2. Biopsy of jejunal mesenteric peritoneal implant. 3. Laparoscopic appendectomy with partial cecectomy with 2 cm of cecum adjacent to the appendiceal orifice, removed en bloc. 4. Biopsy of periappendiceal iliac fossa fat SURGEON: Maurilio Diaz MD INSULATION NOZZLEMAN: None. INDICATIONS: This is a 65-year-old man who presented to the Emergency Department with moderately cramping periumbilical pain. The pain started; however, several months ago with variable pain in the right lower quadrant that waxed and waned. A week prior to his presentation, he had had a CT scan at an outside hospital where he was noted to have an enlarged dilated appendix, but without other features of acute appendicitis. He was sent home. Today, his pain was worse and repeat CT scan again showed a sausage-like central appendix with both the base of the appendix and the tip not dilated. It was dilated to 13 mm. Curiously, upon his initial laboratory workup, he had a normal CRP and a minimally elevated white blood cell count at 11, which, given his long history, raised the possibility of a mucinous neoplasm of the appendix. He was admitted. No antibiotics were started and he was observed. Tumor markers of CEA, CA 19-9 and CA-125 were sent and were within normal limits. Over the course of the night, his periumbilical pain localized to the right lower quadrant. Morning labs indeed showed a leukocytosis as well as elevation of his CRP, which was more consistent with a progression of acute appendicitis. He was taken to the operating room emergently and given antibiotics. FINDINGS: Markedly enlarged appendix with some degree of what appeared to be acute inflammation. The base was questionably involved. Due to the concern for possible mucinous appendiceal neoplasm, the cecum was mobilized and a partial cecectomy performed. A large portion of the peritoneal surfaces were inspected for any mucinous implant disease. There was a small questionable implant on the jejunal mesentery that was biopsied. Considerable time was spent inspecting Morison's pouch, the pelvis and the splenic recesses as mucinous implants tend to favor dependent regions, and none were found. DESCRIPTION OF PROCEDURE: The patient was brought to the operating room. He was prepped and draped in the usual sterile fashion. A timeout was completed. Entry to the abdomen was performed using José Manuel cutdown technique. A vertically oriented incision was carried just superior to the umbilical crown. This was placed through the skin and subcutaneous tissues. The underlying linea alba was identified, grasped with a Leola clamp and elevated. Two retention sutures were placed on either side of it. The retention sutures were brought tight. The clamp was removed and the linea alba was split with a scalpel. A blunt clamp facilitated entry into the abdomen. The José Manuel port was placed and abdomen was insufflated without incident. Three 5 mm ports were placed, one in the left lower quadrant, one in the suprapubic region, being careful to avoid the dome of the bladder and the other in the left abdomen at approximately the level of the umbilicus, but more laterally. Inspecting the abdomen, the anterior abdominal parietal peritoneum was carefully inspected as was the easily visualized portions of the liver, greater omentum and anterior surfaces of the colon. Inspecting the small bowel loops as well, there appeared to be no significant implants identified. I went on to run the bowel from the terminal ileum to the ligament of Treitz inspecting the serosal surfaces as well as the associated mesentery. In the mid portion of mid jejunum, there was a small mesenteric implant of questionable identity. Using a Metzenbaum, this was taken in its entirety from the abdomen and sent to pathology. I then inspected the easily visualized surfaces of the colon. The greater omentum was also carefully looked at, and significant time was spent looking deeply at the surfaces of Morison's pouch as well as the perisplenic recess to identify any dependent disease in these regions. None was identified. Furthermore, the recesses of the appendix in the perirectal region was also closely inspected and no additional implants were seen. We then proceeded to perform the appendectomy. An overlying loop of distal ileum concealed the appendix. This was gently teased medial to expose the appendix. This required some sharp dissection of the adhesive bands between this loop of ileum and the pelvic sidewall. Inspecting the appendix, it was markedly dilated and had what appeared to be some ischemic wall changes at several spots on its surface. There was no mucin identified in the right lower quadrant and there appeared to be no perforation, infectious mucinous or otherwise of the appendix itself. The multiple inflammatory adhesions were able to be gently broken between the mesoappendix and the adjacent mesentery of the terminal ileum. Carefully inspecting the appendiceal base, it was questionably involved and the decision was made, particularly given the possibility of MAN, to perform a partial cecectomy. The cecum was grasped and put on tension medially and the lateral attachments to the sidewall were lysed sharply developing the white line of Toldt. Once the cecum and a portion of the proximal right colon were well mobilized, I proceeded to take down the mesenteric attachments. This began first by developing a window through the mesoappendix and dividing this with a 2.5 mm GENESIS load. Several additional loads were utilized to take down the mesentery of the cecum, which in this case appeared to insert somewhat posteriorly and clear line for division later out approximately 2 cm from the appendiceal orifice on the cecum. With the cecum well-mobilized and the mesentery of the portion of the cecum destined to be resected I proceeded to staple across the cecum. Again, a 2 cm cuff was taken. I was quite careful with the initial staple firing not to encroach on the ileocecal valve and thus obstructed. A total of 4 staple loads of 2.5 mm white vascular load were used to divide the bowel. It would have been my significant preference to use a 3.5 mm blue load given the thicker tissue, but there was none available at the facility. I felt the risk/benefit of doing an open surgery, which would allow me to use a standard GENESIS stapler blue load,was less than the risks of the available laparoscopic staple loads, creating a leak. Nevertheless, I felt that the absence of a blue laparoscopic GENESIS staple load was significant. The staple line was subsequently inspected carefully. It appeared to be well intact and hemostatic. The appendix and portion of cecum were placed in the EndoCatch bag without incident. I immediately removed it from the abdomen, enlarging the umbilical port site, so as to not unduly distort or compress or spill the contents of the bag. This was taken off the field and sent to pathology. Next, using sterile water, the iliac fossa on the right side was irrigated out. The pelvis was irrigated out. There was some probable scarring of the periappendiceal fat/portion of the terminal ileum mesentery of questionable significance. I decided to biopsy this to evaluate for mucinous cells should an MAN be identified. This was easily incised sharply with a laparoscopic Metzenbaum and sent to pathology. Next, hemostasis was confirmed in this area. A cursory inspection was again performed around the abdomen, there appeared to be excellent hemostasis. Port sites were then removed under direct visualization. I then proceeded to close the vertically oriented umbilical fascial defect with a running simple continuous 0 Vicryl suture. Local anesthetic was infiltrated into the wounds. Wounds were copiously irrigated and the skin was closed using deep dermal 2-0 Vicryl suture followed by a running subcuticular monofilament absorbable suture. Dressings were applied. The patient was extubated and brought to PACU without incident. ESTIMATED BLOOD LOSS: 30 mL. COMPLICATIONS: None. IMPLANTS: None. SPECIMENS: 1. Appendix with cuff of cecum. 2. Periappendiceal fat. 3. Jejunal mesenteric implant. JS:kyle Job ID: [id number] Doc ID: [id number] Maurilio JOHNSON
--- NOTE | 2020-07-03 12:34 | Surgical Pathology Report ---
Histology Microscopic Diagnosis Specimen A- COLON, CECUM AND APPENDIX, PARTIAL COLECTOMY: -- MARKED ACUTE APPENDICITIS WITH SEROSITIS. -- CECUM WITH NO DIAGNOSTIC ALTERATION. -- MARGIN VIABLE. -- NO NEOPLASM OR MALIGNANCY IDENTIFIED, SEE COMMENT. Comments The concern for a mucinous appendiceal neoplasm is noted. Grossly, no lesions or masses are identified within the appendix or cecum. The appendix shows dilation with thinned wall and luminal fecalith. The cecum is unremarkable. The specimen is entirely submitted for histologic evaluation showing marked acute inflammation including serositis. The periappendiceal fat biopsy (specimen B) shows cautery artifact and necrosis with reactive features including reactive mesothelial cells. No neoplasia or malignancy is identified. Clinical History Generalized abdominal pain. Procedural Impression Mucinous neoplasm of appendix. Gross Description Received in formalin labeled appendix with portion of cecum, is an appendix with portion of attached cecum. The specimen has an overall measurement of 10.5 x 4 x 1.8 cm. The appendix measures 7.5 cm in length by up to 1.6 cm diameter. The cecal portion measures 3.7 x 1.5 x 2.2 cm. There is abundant attached adipose. The specimen is received closed via staple line at the margin. The specimen is inked black. The serosal surface is notable for red-purple discoloration at the appendiceal-cecal junction and extending into the appendix in an area of approximately 3 x 1.5 cm. A raised serosal lesion measuring 0.5 x 0.5 cm is identified 2.8 cm from the margin and inked orange. The remainder of the appendiceal serosal surface is purple turcios. The specimen is opened to reveal fecal material. The appendiceal wall is thinned and measures approximately 0.1 cm. The mucosal surface is mottled red. No mucosal mass or lesion is identified. Wheelchair Rental Clerk sections submitted: A1 - margin; A2 - appendiceal tip, bisected; A3 - transition cecum to appendix to include red-brown serosal tissue; A4-A5 - hospital sales representative sections of appendix with raised serosal lesion in A4; A6 - hospital sales representative cecum; the remainder of the tissue is submitted cassettes A7-A16. IHC Disclaimer Some of the tests reported may not have been cleared or approved by the U.S. Food Drug Administration (FDA). However, the FDA has determined that such clearance or approval is not necessary. Pursuant to the requirements of CLIA, this laboratory has established and verified the accuracy and precision of all tests, and additional information about these tests is available upon request. All technical controls are adequate. Microscopic Diagnosis Specimen B- APPENDICEAL FAT, BIOPSY: -- MESENTERY AND ADIPOSE TISSUE WITH NECROSIS AND REACTIVE CHANGES, SEE COMMENT. Microscopic Description Sections show mesentery and adipose tissue with cautery artifact, necrosis and reactive mesothelial cells. Immunohistochemistry is performed. Cells of interest: Reactive epithelioid cells. Pancytokeratin: Positive. CK5/6: Positive. CK7: Positive. CK20: Negative. CDX2: Negative. Interpretation: Reactive mesothelial cells. Gross Description Received in formalin labeled appendiceal fat, is an unoriented 0.6 x 0.6 x 0.2 cm brown-black soft tissue fragment. Totally submitted in one cassette. Microscopic Diagnosis Specimen C- SOFT TISSUE, SMALL BOWEL MESENTERY IMPLANT, BIOPSY: -- BENIGN FIBROADIPOSE TISSUE. -- NO NEOPLASIA OR MALIGNANCY IDENTIFIED. (EBD:adj) Gross Description Received in formalin labeled small bowel mesentery implant, is a 1.1 x 0.5 x 0.2 cm yellow soft tissue fragment. Totally submitted in one cassette. (EBD:adj) Electronically Signed Diana Nelson MD, FCAP Electronically Signed 07/03/2020 12:30 PM
== END 2020-06-30 11:04 | disposition home or self-care (01) | DRG 331 ==
LOC: ED 17:08 → MEDSUR 06-28 00:12
PROVIDERS: ADMIT Surgery; ATTEND Surgery